=== PATIENT | male | born 1950 | race Caucasian/White ===

== ENCOUNTER → 2020-10-05 11:39 | Outpatient (BNVA) | payer MEDICARE, SELFPAY | PROVIDERS: Visit Provider Surgery | DX: Z20.828 Contact with and (suspected) exposure to other viral communicable diseases (principal); Z01.812 Encounter for preprocedural laboratory examination | CPT/HCPCS: 87635 ==

== ENCOUNTER 2020-10-10 07:15 | Day surgery (SDC) | payer MEDICARE, SELFPAY ==
[2020-10-10 07:30] VITALS: BP 178/84; PULSE 74; RESP 18; TEMP 36.6; O2SAT 96; BMI 31.0
[2020-10-10] MEDS: sodium chloride 0.9% 1,000 ML 30 ML IV (07:52)
--- NOTE | 2020-10-10 08:24 | W.PM.OPSUD ---
Surgery/Procedure H&P Update DATE OF PROCEDURE: October 10, 2020 DATE H&P PERFORMED: 10/01/20 H&P UPDATE INFORMATION: No changes to prior documentation PLANNED PROCEDURE: Operation Date: 10/10/20 08:45 Proposed Procedures p Open Inguinal Hernia Repair 94690 K40.30(Right) - Preston Schultz MD
--- NOTE | 2020-10-10 08:56 | PM.OP ---
Operative Report Date of procedure: October 10, 2020 Pre-op Diagnosis: Incarcerated right inguinal hernia. Post-op diagnosis: same Post-op Diagnosis: Same, indirect. Procedure Done: Reduction and repair of incarcerated right inguinal hernia with mesh. Pathology: none sent Surgeon: Preston Schultz Anesthesia: MAC Estimated blood loss (mL): 5 Complications: None. Condition: stable Procedure: The patient was brought to the operating room and was placed in a supine position on the operating room table. A monitored anesthetic was induced. The right inguinal region and scrotum were prepped and draped in a sterile fashion. A combination of 1% lidocaine and 0.5% bupivacaine with 1-200,000 parts epinephrine was used for local anesthesia throughout the procedure. A transverse incision was carried out above the level of the pubic tubercle. Cautery was used to divide the subcutaneous tissue down to the external oblique aponeurosis which was incised in parallel with its fibers over the inguinal canal. The spermatic cord was looped with a Wolcott drain and was found to be very generous in size. An indirect hernia was found at the internal ring, extending into the right hemiscrotum. The hernia sac and contents were carefully freed from the cord structures down to the internal ring. The hernia contents were reduced and the excess sac was then stick tied with a suture of 3-0 Vicryl. The excess sac was excised and the remaining hernia sac was reduced. A large mesh plug was used to hold the remaining hernia sac in a reduced position and was held in place with some sutures of 0 Prolene that were used to connect the conjoined area medially to the reflecting edge of Poupart's ligament laterally. The onlay patch was anchored at the tubercle with a suture of 0 Prolene and was laid along the inguinal canal floor, allowing the cord structures to pass through the precut hole in the mesh. The two wings of mesh were sewn to each other above the level of the internal ring with a suture of 0 Prolene. The external oblique aponeurosis was closed over the top of the cord using a running suture of 3-0 Vicryl. The wound was irrigated with saline. The subcutaneous tissue was brought together with a simple suture of 3-0 Vicryl and the skin was approximated using a running subcuticular suture of 3-0 Vicryl. Benzoin and Steri-Strips were placed over the incision and a sterile bandage followed. The patient was taken to the recovery area in stable condition postoperatively.
--- NOTE | 2020-10-10 09:01 | ANES.PREANE2 ---
Pre-Anesthetic Assessment Pre-Anesthetic Assessment: Height/Weight: Height 1.75 m Weight 95.254 kg Temp Pulse Resp BP Pulse Ox 97.9 F 74 18 178/84 96 10/10/20 07:30 10/10/20 07:30 10/10/20 07:30 10/10/20 07:30 10/10/20 07:30 Preop Diagnosis: Incarcerated right inguinal hernia. Proposed Procedure: Operation Date: 10/10/20 08:45 Proposed Procedures p Open Inguinal Hernia Repair 01922 K40.30(Right) - Preston Schultz MD Was Beta Aysha taken within 24 hours: N/A Last intake: Intake Last Liquid Date 10/09/20 Last Liquid Time 21:00 Last Solid Date 10/09/20 Last Solid Time 21:00 Social: Social History: No alcohol and No tobacco Exam: Pre-Anes Outpt Exam: alert, oriented x 3, clear to auscultation bilaterally and regular rate & rhythm Airway: Submandibular: WNL Cervical ROM: WNL MP: 2 Dentition: Chipped and Loose History/ROS: No significant history except as noted and No significant complaints Pulmonary: Pulmonary: None reported CV/HEM: CV/HEM: HTN Comments: borderline HTN : : None reported Hepatic: Hepatic: None reported GI: GI: None reported Metabolic: Metabolic: None reported Musc/skel: Musc/skel: None reported Neuropsych: Neuropsych: None reported Anesthetic Plan: ASA status: 2 Anesthesia: MAC Risk of > 500 ml blood loss (7ml/kg in children): No Meds/Allergies Current Medications: Current Medications Generic Name Dose Route Start Last Admin Trade Name Freq PRN Reason Stop Dose Admin Sodium Chloride 1,000 mls @ 30 ml s/hr 10/10/20 07:15 10/10/20 07:52 Sodium Chloride 0.9% IV 10/11/20 07:14 30 mls/hr .Q24H KYLE Administration Data Anesthesia Cardiac Studies: No Data to Display
[2020-10-10 10:04] VITALS: BP 136/75; PULSE 72; RESP 18; TEMP 36.5; O2SAT 99
[2020-10-10] MEDS: HYDROcodone-acetaminophen 5-325 mg Tablet 1 TAB PO (10:23)
[2020-10-10 10:40] VITALS: BP 145/61; PULSE 78; RESP 18; TEMP 36.8; O2SAT 96
== END 2020-10-10 10:49 | disposition home or self-care (01) ==
PROVIDERS: Visit Provider Surgery
PROC: (CPT 49507; principal; 2020-10-10 08:45)
DX: K40.30 Unilateral inguinal hernia, with obstruction, without gangrene, not specified as recurrent (principal); Z80.42 Family history of malignant neoplasm of prostate; Z92.3 Personal history of irradiation
CPT/HCPCS: 49507; 12345; C1781; J0690; J2250; J2704; J3010; J3490; J7030

== ENCOUNTER 2022-07-25 23:57 | Emergency (ER) | payer MEDICARE, SELFPAY ==
[2022-07-26 00:08] VITALS: BP 189/74; PULSE 74; RESP 18; TEMP 37.3; O2SAT 98; BMI 28.8
--- NOTE | 2022-07-26 00:17 | CTR_ITS ---
PROCEDURE INFORMATION: Exam: CT Abdomen And Pelvis Without Contrast Exam date and time: 07/26/2022 12:35 AM Age: 71 years old Clinical indication: Abdominal pain; Flank; Left; Prior surgery; Surgery type: Hernia repair; Additional info: L flank pain TECHNIQUE: Imaging protocol: Computed tomography of the abdomen and pelvis without contrast. Radiation optimization: All CT scans at this facility use at least one of these dose optimization techniques: automated exposure control; mA and/or kV adjustment per patient size (includes targeted exams where dose is matched to clinical indication); or iterative reconstruction. COMPARISON: CR XR hip BI 3-4V wo/w pel [id number] 09/01/2018 1:07 PM RADIATION DOSE METRICS: Total DLP (mGy-cm): 813.33 FINDINGS: Liver: Normal. No mass. Gallbladder and bile ducts: Normal. No calcified stones. No ductal dilation. Pancreas: Normal. No ductal dilation. Spleen: Normal. No splenomegaly. Adrenal glands: Normal. No mass. Kidneys and ureters: 6 mm left ureteral stone at the level of L4-L5 with moderate left hydronephrosis. Stomach and bowel: Duodenal diverticulum. Appendix: Normal appendix. Intraperitoneal space: Unremarkable. No free air. No significant fluid collection. Vasculature: Calcification of the abdominal aorta and/or iliac arteries consistent with atherosclerotic vessel disease. One or more calcified pelvic phleboliths. Lymph nodes: Unremarkable. No enlarged lymph nodes. Urinary bladder: Unremarkable as visualized. Reproductive: Unremarkable as visualized. Bones/joints: Severe multilevel spine degenerative changes including degenerative disc disease, spondylosis and facet degenerative changes. Soft tissues: Unremarkable. CT/CT kidney stone [id number] IMPRESSION: 6 mm left ureteral stone at the level of L4-L5 with moderate left hydronephrosis.
--- NOTE | 2022-07-26 00:18 | ED_ITS ---
HPI - Abdominal Pain General: Chief Complaint: Abdominal Pain Stated Complaint: left flank pain Time Seen by Provider: 07/25/22 23:58 Source: patient Mode of arrival: ambulatory Limitations: no limitations History of Present Illness: 71-year-old male who states he started having flank pain at 7:30 PM. He states that pain started suddenly and is sharp in nature rates an 8 out of 10. He states the pain is in his left flank denies any dysuria has had some nausea denies any vomiting denies any worsening improving factors no history of kidney stones in the past. Associated Symptoms: Reports nausea; Denies chills, dysuria and fever(s) Review of Systems Const: Denies: fever(s), chills, body aches or change in appetite Eyes: Denies: blurry vision or eye discomfort ENMT: Denies: throat pain or dental pain Card: Denies: chest pain Resp: Denies: dyspnea GI: Reports: abdominal pain and nausea : Denies: dysuria Musc: Denies: neck pain or back pain Skin/Breast: Denies: rash Neuro: Denies: headache(s) Psych: Denies: depression Alex/Lymph: Denies: easy bruising All/Imm: Denies: urticaria PFSH ED PFSH: Medical History (Updated 07/26/22 @ 01:22 by Radha Hernandez MD) No pertinent past medical history Social History Substance/Drug Use: never Physical Exam Const: COMMON NORMALS: no acute distress, patient oriented x3 and healthy appearing HENMT: COMMON NORMALS: normocephalic and atraumatic HEAD & SCALP: normocephalic and atraumatic Eye: COMMON NORMALS: Equal, round and reactive pupils present and EOMs intact bilaterally PUPIL: Yes Equal, round and reactive pupils present Neck/C-Spine: COMMON NORMALS: full ROM and supple Chest: COMMONS NORMALS: normal inspection of the chest and normal palpation of entire chest wall Resp: COMMON NORMALS: normal respiratory effort, No retractions, No use of accessory muscles and clear to auscultation bilaterally AUSCULTATION: clear to auscultation bilaterally Cardio: COMMON NORMALS: regular rate, regular rhythm and No murmurs present (Cardio) RATE: regular rate RHYTHM: regular rhythm GI: COMMON NORMALS: Normal to inspection, nondistended, normoactive bowel sounds present, Soft to palpation, non-tender and no masses PALPATION: Yes Soft to palpation Back/Pelvis: OTHER: Left lower back tenderness Extremity: COMMON NORMALS: normal to inspection and full ROM Neuro: COMMON NORMALS: patient oriented x3, moves all extremities and no focal motor deficits Psych: COMMON NORMALS: mental status grossly normal, Normal thought process present and cooperative THOUGHT PROCESS: Normal thought process present Skin: COMMON NORMALS: no rashes or lesions noted and no wounds GENERAL SKIN EXAM: no rashes or lesions noted Course Vital Signs: Vital signs: Vital Signs Temperature 97.9 F 07/26/22 00:30 Pulse Rate 71 07/26/22 01:00 Respiratory Rate 14 07/26/22 01:00 Blood Pressure 131/75 07/26/22 01:00 Pulse Oximetry 96 07/26/22 01:00 Oxygen Delivery Me thod 07/26/22 01:00 MDM - Abdominal Pain Medical Decision Making Patient presents with a kidney stone causing his pain his pain here is resolved he is well-appearing here no signs of infection he is to follow-up with urology return if worsening he understands agrees to plan. Lab Data : 07/26/22 00:30 07/26/22 00:30 Labs/Radiology: Radiology Impressions Abdomen/Pelvis CT 07/26/22 00:17 IMPRESSION: 6 mm left ureteral stone at the level of L4-L5 with moderate left hydronephrosis. Laboratory Results WBC 9.8 10^3/uL (4.0-10.0) 07/26/22 00:30 RBC 4.90 10^6/uL (4.1-5.3) 07/26/22 00:30 Hgb 15.6 g/dL (11.7-16.6) 07/26/22 00:30 Hct 45.2 % (42.0-52.0) 07/26/22 00:30 MCV 92.2 fl (80-94) 07/26/22 00:30 MCH 31.8 pg (28.0-34.0) 07/26/22 00:30 MCHC 34.5 g/dL (30.0-36.0) 07/26/22 00:30 RDW 12.8 % (12.1-15.1) 07/26/22 00: Plt Count 174 10^3/cmm (130-400) 07/26/22 00: MPV 11.0 fL (7.4-10.4) H 07/26/22 00: Neut % (Auto) 78.2 % 07/26/22 00: Lymph % (Auto) 13.3 % 07/26/22 00: [place] % (Auto) 5.6 % 07/26/22: Eos % (Auto) 2.2 % 07/26/22 00: Baso % (Auto) 0.4 % 07/26/22: Neut # (Auto) 7.67 10^3/uL (1.8-7.7) 07/26/22: Lymph # (Auto) 1.3 10^3/uL (0.8-4.8) 07/26/22 00:30 [place] # (Auto) 0.6 10^3/uL (0.2-0.9) 07/26/22 00: Eos # (Auto) 0.2 10^3/uL (0.0-0.8) 07/26/22 00:30 Baso # (Auto) 0.0 10^3/uL (0.0-0.1) 07/26/22 00: Nucleated RBC % (auto) 0 % 07/26/22: Nucleated RBCs # 0.0 /100WBC 07/26/22 00: Sodium 139 mmol/L (136-145) 07/26/22: Potassium 3.9 mmol/L (3.5-5.1) 07/26/22: Chloride 103 mmol/L (98-107) 07/26/22 00: Carbon Dioxide 24 mmol/L (22-29) 07/26/22 00:30 Anion Gap 15.9 (5-19) 07/26/22:30 BUN 17 mg/dL (8-23) 07/26/22:30 Creatinine 1.3 mg/dL (0.7-1.2) H 07/26/22 00:30 GFR Calculation Not Reportable 07/26/22: Glucose 167 mg/dL (65-115) H 07/26/22 00:30 Calculated Osmolality 293 mOsm/kg (285-295) 07/26/22 00: Calcium 9.6 mg/dL (8.5-10.5) 07/26/22: Total Bilirubin 0.4 mg/dL (0.15-1.2) 07/26/22 00:30 AST 14 U/L (0-40) 07/26/22: ALT 15 U/L (0-41) 07/26/22: Alkaline Phosphatase 82 U/L (40-130) 07/26/22: Total Protein 6.6 g/dL (6.6-8.7) 07/26/22: Albumin 4.1 g/dL (3.5-5.2) 07/26/22 Globulin 2.5 g/dL (1.3-4.6) 07/26/22: Lipase 56 U/L (13-60) 07/26/22 00: Urine Color Yellow (Yellow) 07/26/22 Urine Appearance Clear (CLEAR) 07/26/22: Urine pH 5 (5-7) 07/26/22: Ur Specific Hall 1.025 (1.005-1.030) 07/26/22: Urine Protein Neg (Negative) 07/26/22: Urine Glucose (UA) 1+ (Normal) H 07/26/22 00:30 Urine Ketones Negative (Negative) 07/26/22: Urine Blood 2+ (Negative) H 07/26/22 00: Urine Nitrate Negative (Negative) 07/26/22: Urine Bilirubin Neg (Negative) 07/26/22 00: Urine Urobilinogen Neg mg/dL (Negative) 07/26/22 00: Ur Leukocyte Esterase Negative (Negative) 07/26/22: Urine RBC 15-25 /hpf (0-2) H 07/26/22 00: Urine WBC 0-4 /hpf (0-5) H 07/26/22 00:30 Ur Squamous Epith Cells 0-4 /hpf (0-5) H 07/26/22 00:30 Calcium Oxalate Crystal 0-4 /hpf H 07/26/22 00:30 Amorphous Sediment Not Reportable 07/26/22 00:30 Urine Bacteria Trace /hpf (NONE) 07/26/22 00:30 Discharge Plan Discharge Patient Disposition: Home Clinical Impression: Kidney stone Prescriptions: New hydrocodone-acetaminophen 5-325 mg tablet 1 tab PO Q6H PRN (Reason: pain) Qty: 14 0RF ondansetron 4 mg tablet,disintegrating 4 mg PO Q6H PRN (Reason: nausea and vomiting) Qty: 14 0RF Flomax 0.4 mg capsule 0.4 mg PO DAILY Qty: 7 0RF No Action multivitamin Capsule 1 cap PO DAILY [id number] C-Mn 500-400 mg Capsule 1 cap PO DAILY hydrocodone-acetaminophen 5-325 mg tablet 1 - 2 tab PO Q5H PRN (Reason: pain) Qty: 30 0RF Discharge Orders: Discharge ED (Routine); Ordered 07/26/22 Ordered By: Radha Hernandez Referrals: Jemal Crane MD [Physician] - 1-3 days Quinn Garrido MD [Primary Care Provider] - Discharge Diet: Advance as tolerated Discharge Activity: Resume usual activity Patient Instructions: Kidney Stones (ED), Opioid Safety Coding Level of Care Code ED Multiple Spindle Screw Machine Operator for Chg Fwd Exam Comprehensive
[2022-07-26 00:30] VITALS: BP 187/93; PULSE 80; RESP 20; TEMP 36.6; O2SAT 94
[2022-07-26 00:46] VITALS: RESP 16
[2022-07-26 00:46] LABS: Basophils % 0.4 %; Eosinophils # 0.2 10^3/uL (0.0-0.8); Eosinophils % 2.2 %; Hematocrit 45.2 % (42.0-52.0); Hemoglobin 15.6 g/dL (11.7-16.6); Lymphocytes # 1.3 10^3/uL (0.8-4.8); Lymphocytes % 13.3 %; Mean Corpuscular HGB Conc 34.5 g/dL (30.0-36.0); Mean Corpuscular Hemoglobin 31.8 pg (28.0-34.0); Mean Corpuscular Volume 92.2 fl (80-94); Monocytes # 0.6 10^3/uL (0.2-0.9); Monocytes % 5.6 %; Neutrophils # 7.67 10^3/uL (1.8-7.7); Neutrophils % 78.2 %; Nucleated Red Blood Cells % 0 %; Platelet Count 174 10^3/cmm (130-400); Red Cell Distribution Width 12.8 % (12.1-15.1); White Blood Count 9.8 10^3/uL (4.0-10.0)
[2022-07-26] MEDS: sodium chloride 0.9% 1,000 ML 999 ML IV (00:46)
[2022-07-26] MEDS: HYDROmorphone 1 mg/mL INJ 1 mL 0.5 MG IVP (00:46)
[2022-07-26] MEDS: ondansetron 2 mg/ML SDV 2 mL 4 MG IVP (00:46)
[2022-07-26 00:58] LABS: Add Urine Microscopic? YES; Bilirubin Urine Neg (Negative); Blood Urine 2+ (Negative); Glucose Urine UA 1+ (Normal); Ketones Urine Negative (Negative); Leukocyte Esterase Urine Negative (Negative); Nitrate Urine Negative (Negative); Protein Urine Neg (Negative); Specific Gravity, Urine 1.025 (1.005-1.030); Urine Appearance Clear (CLEAR); Urine Color Yellow (Yellow); Urobilinogen Urine Neg (Negative); pH Urine 5 (5-7)
[2022-07-26 00:59] LABS: Bacteria Urine TRACE /hpf; Calcium Oxalate Crystals Urine 0-4 /hpf; RBC Urine 15-25 /hpf (0-2); Squamous Epithelial Cell Urine 0-4 /hpf (0-5); WBC Urine 0-4 /hpf (0-5)
[2022-07-26 01:00] VITALS: BP 131/75; PULSE 71; RESP 14; O2SAT 96
[2022-07-26 01:00] LABS: Add Urine Culture? Yes
[2022-07-26 01:10] LABS: Alanine Aminotransferase 15 U/L (0-41); Albumin Level 4.1 g/dL (3.5-5.2); Alkaline Phosphatase 82 U/L (40-130); Anion Gap 15.9 (5-19); Aspartate Amino Transferase 14 U/L (0-40); Blood Urea Nitrogen 17 mg/dL (8-23); Calcium 9.6 mg/dL (8.5-10.5); Carbon Dioxide 24 mmol/L (22-29); Chloride 103 mmol/L (98-107); Globulin 2.5 g/dL (1.3-4.6); Glucose 167 mg/dL (65-115); Lipase 56 U/L (13-60); Osmolality Calculated 293 mOsm/kg (285-295); Potassium 3.9 mmol/L (3.5-5.1); Sodium 139 mmol/L (136-145); Total Bilirubin 0.4 mg/dL (0.15-1.2); Total Protein 6.6 g/dL (6.6-8.7)
[2022-07-26 01:35] VITALS: BP 170/87; PULSE 68; RESP 14; O2SAT 96
--- NOTE | 2022-07-28 08:33 | DCPLANNER ---
Addendum entered by Анна Gomez 10/30/22 13:55: Patient had a follow up appointment scheduled with urology - patient did attend appointment. Addendum entered by Анна Gomez 08/05/22 15:51: Patient has a follow up appointment scheduled for August at 9:[address] Crane at urology. Clinic will call patient with appointment information. Original Note: shared services and outsourcing manager had message to schedule a follow up appointment for patient with urology. shared services and outsourcing manager sent patients information to the front office staff at urology. Patients information will be printed and reviewed. Clinic will call patient with appointment information.
== END 2022-07-26 01:35 | disposition home or self-care (01) ==
PROVIDERS: Emergency Provider Emergency Medicine; PCP Family Medicine
DX: N13.2 Hydronephrosis with renal and ureteral calculous obstruction (principal)
CPT/HCPCS: 74176; 80053; 81001; 83690; 85025; 87086; 96361; 96374; 96375; 99285; J1170; J2405; J7030

== ENCOUNTER 2022-08-06 06:58 | Outpatient (CLI) | payer MEDICARE, SELFPAY ==
--- NOTE | 2022-08-06 07:47 | XR_ITS ---
WS: [id number] XR KUB [id number] REASON FOR EXAM: STONES FINDINGS: No intrarenal calculi are identified. Calcification adjacent to the left aspect of the L4-L5 joint space. No significant calcification in the pelvis. Significant degenerative spondylosis in the lumbar spine. No other significant abnormality of the abd omen or pelvis. XR/XR KUB [id number] IMPRESSION: Calcification in the left lower abdomen congruent with mid left ureteral calcul us demonstrated on CT scan of 07/26/2022. Position unchanged.
== END 2022-08-06 06:59 | disposition home or self-care (01) ==
LOC: RAD 07:01
PROVIDERS: PCP Family Medicine; Visit Provider Urology
DX: N20.9 Urinary calculus, unspecified; Z85.46 Personal history of malignant neoplasm of prostate; N20.2 Calculus of kidney with calculus of ureter
CPT/HCPCS: 74018; 81003; 99203

== ENCOUNTER 2022-08-14 10:22 | Outpatient (CLI) | payer MEDICARE, SELFPAY ==
--- NOTE | 2022-08-14 11:13 | XR_ITS ---
WS: [id number] KUB, AP view, 08/14/2022 Clinical Data: STONES Comparison: KUB, 08/06/2022. Findings: No abnormal intraabdominal masses are seen. There is no dilatated small bowel or evidence of obstruct ion. There may be a calcification over the inferior pole of the left kidney. The possible left mid uretera l calcification lateral to the L4-L5 disc level is still seen. XR/XR KUB [id number] Impression: No change in possible mid left ureteral calculus.
== END 2022-08-14 10:23 | disposition home or self-care (01) ==
LOC: RAD 10:23
PROVIDERS: PCP Family Medicine; Visit Provider Urology
DX: N20.9 Urinary calculus, unspecified (principal); N20.1 Calculus of ureter; Z85.46 Personal history of malignant neoplasm of prostate
CPT/HCPCS: 74018; 81003; 99214

== ENCOUNTER 2022-08-19 08:06 | Day surgery (SDC) | payer MEDICARE, SELFPAY ==
[2022-08-19] VITALS (10 sets, daily range): BP systolic 119–171; BP diastolic 57–84; PULSE 53–69; RESP 12–28; TEMP 36.2–36.7; O2SAT 92–100
--- NOTE | 2022-08-19 | SCC_ITS ---
Procedure done: 1. Cystoscopy, LEFT retrograde, ureteroscopy, laser, stent 2. Left RENOSCOPY, laser of second stone located in the left lower pole 47.5 seconds of fluoroscopic guidance, for a cumulative dose of 14.2 mGy, was provided to Dr. Crane by the radiology department. C-arm images of the abdomen were saved for the patient's permanent record. [facility]
--- NOTE | 2022-08-19 05:57 | W.PM.OPSUD ---
Surgery/Procedure H&P Update DATE OF PROCEDURE: August 19, 2022 DATE H&P PERFORMED: 08/21/22 H&P UPDATE INFORMATION: I have reviewed H&P completed within last 30 days, I have examined patient prior to procedure, No changes to prior documentation and H[place] is in [facility] [place] indicated CHANGES TO PREVIOUS DOCUMENTATION: I did review the KUB preoperatively and it shows a persistence of the left mid ureteral stone in the same position as previously been noted. The proximally migrated second stone is still in the left lower pole. PREOP DIAGNOSIS: Refractory LEFT ureteral calculus PLANNED PROCEDURE: Operation Date: 08/19/22 09:35 Proposed Procedures p Cystoscopy, Left Retrograde, ureteroscopy, laser, stent [id number],N20.0(Not Applicable) - Jemal Crane MD s Retrograde Pyelogram(Left) - MD derrek Beach Ureteroscopy(Not Applicable) - MD derrek Beach Laser Lithotripsy(Left) - MD derrek Beach Ureteral Stent Placement(Left) - Jemal Crane MD
--- NOTE | 2022-08-19 07:23 | SC_ITS ---
WS: [id number] INTRAOPERATIVE TECHNIQUE: 6 Spot fluoroscopic images for intraoperative purposes. FLUOROSCOPY TIME: 47.5 seconds CLINICAL INFORMATION: Left ureteroscopy COMPARISON: None. FINDINGS: LEFT ureteroscopy. Balloon angioplasty LEFT distal ureter stricture. Double-J ureteral stent georgette ashby SC/C-arm [place] for Urology IMPRESSION: Images obtained for intraoperative purposes.
--- NOTE | 2022-08-19 07:23 | XR_ITS ---
WS: [id number] KUB, AP view, 08/19/2022 Clinical Data: Preop left ureteroscopy Comparison: KUB, 08/14/2022 Findings: No abnormal intraabdominal masses are seen. There is no dilatated small bowel or evidence of obstruct ion. There is a calcification over the inferior pole of the left kidney. The probable left mid ureteral ca lcification is overlying the proximal left SI joint. XR/XR KUB [id number] Impression: No change in possible left mid ureteral calculus.
--- NOTE | 2022-08-19 09:02 | P.OP_ITS ---
Operative Report Date of procedure: August 19, 2022 Pre-op diagnosis: Refractory LEFT ureteral calculus LEFT lower pole stone Post-op diagnosis: Refractory LEFT ureteral calculus LEFT lower pole stone Procedure done: 1. Cystoscopy, LEFT retrograde, ureteroscopy, laser, stent 2. Left RENOSCOPY, laser of second stone located in the left lower pole Implants: Left ureteral stent (6 Libyan by 28 cm double-pigtail with string) Specimens removed/disposition: None Pathology: none Surgeon: Royce Estimated blood loss: Minimal Urine output: Not measured Complications: None Findings: Anesthesia: General Condition: Stable Disposition: PACU Intraoperative findings: * * Brief History: Mr. Cortez is a delightful 71-year-old white male recently diagnosed with 2 stones in the left mid ureter on CT scan imaging. Presented with typical renal colicky type symptoms. On follow-up KUB the more proximal of the 2 stones had migrated back into the LEFT lower pole. Further conservative management failed to show any significant progression of the mid ureteral stone and ultimately elected to proceed with treatment. Endoscopic was selected over ESWL based on logistics for him. He is plan on leaving [facility] on Wednesday the . We did review that he would likely have a stent indwelling for that. He is hoping to see the fall color changes in [place]. Procedure: After routine preoperative evaluation examination and obtaining of informed consent he was taken to the operating suite on 08/19/2022 where general anesthesia was administered without difficulty after appropriate timeout was performed, SCDs confirmed to be functioning, preoperative antibiotics administered, beta-wilber protocol confirmed. Prepped and draped in the usual sterile fashion in dorsolithotomy position paying careful attention to avoiding pressure points. 21 Libyan cystoscope with 30 degree lens was introduced into the urethra meatus and advanced into the bladder without difficulty. Bladder was systematically examined. No stones were seen. No other gross pathology identified. An 8 Libyan cone-tip catheter was intubated into the LEFT ureteral orifice for left retrograde ureteropyelogram demonstrating: Normal ureter course and ca liber. Filling defect consistent with a stone seen on CT scan on today's KUB. Contrast easily passed the stone into the proximal ureter and pyelocalyceal system. On tape cutter film of the left lower pole was readily identified. Flexible tip guidewire was then advanced up the left ureter bypassing the stone which was identified in the mid ureter area. The distal ureter was then dilated with a 15 Libyan 4 cm balloon. The wire was secured to the drapes as a safety wire. A 7.5 Libyan offset semirigid ureteroscope was then advanced up the left ureter. The stone was encountered in its expected position and fragmented with a 365 ?m thulium superpulse laser fiber into mostly sand. A second guidewire was then passed through the ureteroscope and the ureteroscope removed. A flexible ureteroscope was then advanced over the second wire easily into the renal pelvis and the stone was identified in the left lower pole. The scope would not flex adequately to access the lower pole stone and for that reason a 200 ?m thulium superpulse laser fiber was utilized which allowed easy access and bending of the scope to fragment the stone into tiny pieces. No pieces were collected. We will have him strain his urine. Although it remains mostly sand and tiny tiny fragments. The ureter was inspected as the scope was removed and felt to be in good shape with no severe inflammatory changes. It was though decided to leave a stent in place temporarily with a string attached to help ameliorate any dilation trauma swelling Cystoscope was then backloaded over the guidewire and a 6 Libyan by 28 cm do uble-pigtail stent was advanced over the guidewire through the cystoscope into appropriate position as confirmed via fluoroscopy and cystoscopy. Bladder was drained. String was left attached distally to the stent and it was shortened. He tolerated the procedure well without complications. Was awakened in the operating room and returned to PACU in stable condition. PLANS: 1. Anticipate discharge from outpatient surgery 2. Will have him pull the stent himself with the string on 08/22/2022.
--- NOTE | 2022-08-19 09:05 | ANES.PREANE2 ---
Pre-Anesthetic Assessment Height/Weight: Height 1.75 m Weight 88.451 kg Temp Pulse Resp BP Pulse Ox O2 Del Method 98.0 F 69 16 171/84 97 08/19/22 08:45 08/19/22 08:45 08/19/22 08:45 08/19/22 08:45 08/19/22 08:45 08/19/22 08:46 Preop Diagnosis: Refractory LEFT ureteral calculus Operation Date: 08/19/22 09:35 Proposed Procedures p Cystoscopy, Left Retrograde, ureteroscopy, laser, stent [id number],N20.0(Not Applicable) - Jemal Crane MD s Retrograde Pyelogram(Left) - MD derrek Beach Ureteroscopy(Not Applicable) - Jemal Crane MD s Laser Lithotripsy(Left) - MD derrek Beach Ureteral Stent Placement(Left) - Jemal Crane MD Familial anesthetic complications: None Was Beta Aysha taken within 24 hours: N/A Was Clonidine taken within 24 hours: N/A Last intake: Intake Last Liquid Date 08/18/22 Last Liquid Time 23:30 Last Solid Date 08/18/22 Last Solid Time 22:00 Social No alcohol and No tobacco Exam alert, oriented x 3, clear to auscultation bilaterally and regular rate & rhythm Airway Mallampati: Class II Dentition: chipped and loose CV/HEM Hypertension ( Only when I'm at the doctor's ) Anesthetic Plan ASA status: 2 Anesthesia: General Risk of > 500 ml blood loss (7ml/kg in children): No Medications/Allergies Home Medications Medication Instructions Recorded Confirmed Last Taken Type tpahmngzipx-atmtqzihv-mda C-Mn 500 1 cap PO DAILY 10/09/20 08/19/22 08/18/22 History mg-400 mg capsule multivitamin 1 cap PO DAILY 10/09/20 08/19/22 08/18/22 History hydrocodone 5 mg-acetaminophen 325 1 tab PO Q6H PRN pain #14 tabs 07/26/22 08/19/22 08/13/22 Rx mg tablet tamsulosin 0.4 mg capsule (Flomax) 0.4 mg PO DAILY #30 caps 08/11/22 08/19/22 08/18/22 Rx Allergies Allergy/AdvReac Type Severity Reaction Status Date / Time No Known Allergies Allergy Verified 08/14/22 11:40 [facility] Anesthesia Medical History Urolithiasis Surgical History Status post colonoscopy Status post inguinal hernia repair Family History Mother , at age 67 Cancer breast Father , at age 76 MRSA (methicillin resistant staph aureus) culture positive Social History Smoking and tobacco status: never smoked Alcohol intake: never Marital status: Current occupational status: employed History of recent travel: No Data Anesthesia Cardiac Studies: No Data to Display
[2022-08-19] MEDS: sodium chloride 0.9% 1,000 ML 30 ML IV (09:11)
[2022-08-19] MEDS: levofloxacin-dextrose 5 % 500 MG/100 ML PREMIX 100 MG IV (09:12)
--- NOTE | 2022-08-19 11:00 | SUR.OPER ---
omnipaque 350mgI/ml 20ml added to sterile field. [id number]. exp 04/02/25
--- NOTE | 2022-08-19 13:56 | ANE.PACU2 ---
Inpatient post-anesthesia follow up: Airway intact: Yes Vital signs: Temperature 98.1 F Pulse Rate 68 Respiratory Rate 16 Blood Pressure 138/83 Pulse Oximetry 96 Oxygen Delivery Me thod Room Air Oxygen Flow Rate 6 Fraction of Inspir ed Oxygen Hydration adequate: Yes Nausea and vomiting: No Pain level: 1 Mental status: Baseline
== END 2022-08-19 12:05 | disposition home or self-care (01) ==
PROVIDERS: PCP Family Medicine; Visit Provider Urology
PROC: 0TJB8ZZ Inspection of Bladder, Via Natural or Artificial Opening Endoscopic (ICD-10-PCS; CPT 52000; principal; 2022-08-19 09:25)
PROC: (CPT 74420; 2022-08-19 09:25)
PROC: 0TJ98ZZ Inspection of Ureter, Via Natural or Artificial Opening Endoscopic (ICD-10-PCS; CPT 52351; 2022-08-19 09:25)
PROC: (CPT 52356; 2022-08-19 09:25)
PROC: (CPT 50605; 2022-08-19 09:25)
DX: N20.1 Calculus of ureter (principal); I10 Essential (primary) hypertension; Z85.46 Personal history of malignant neoplasm of prostate
CPT/HCPCS: 52356; 74018; 76000; C2625; J1100; J1956; J2405; J2704; J2710; J3010; J3490; J7030

== ENCOUNTER 2025-01-30 05:00 | Outpatient (RCR) | payer MEDICARE, SELFPAY | END 2025-02-28 23:59 | disposition home or self-care (01) | LOC: GPT 05:00 | PROVIDERS: Visit Provider Orthopaedic Surgery | DX: M17.11 Unilateral primary osteoarthritis, right knee (principal) | CPT/HCPCS: 97110; 97112; 97140; 97161 ==

== ENCOUNTER 2025-03-01 05:00 | Outpatient (RCR) | payer MEDICARE, SELFPAY | END 2025-03-31 23:59 | disposition home or self-care (01) | LOC: GPT 05:00 | PROVIDERS: Visit Provider Orthopaedic Surgery | DX: M17.11 Unilateral primary osteoarthritis, right knee (principal) | CPT/HCPCS: 97110; 97112; 97140; 97530 ==